=== PATIENT | female | born 1980 | race American Indian/Alaskan Native ===

== ENCOUNTER 2020-11-23 21:34 | Emergency (ER) | payer MEDICAID ==
[2020-11-23 22:12] VITALS: BP 116/63
--- NOTE | 2020-11-23 22:58 | Emergency Department Report ---
ED Head Trauma HPI - General Chief complaint: Head Injury Stated complaint: HEAD PAIN/HEADACHE Time Seen by Provider: 11/23/20 22:23 Source: patient Mode of arrival: Ambulatory Limitations: No Limitations - History of Present Illness Initial comments: Patient is a 40-year-old female presents emergency room complaints of a head injury that occurred 5 days ago. Patient states that she had some clothes hanging and was ducking underneath and hit her head against the door frame. She states since then she has had a left frontal and left temporal headache. She denies any loss of consciousness. She states one morning she woke up and her vision felt slightly blurry but since then she has had no vision changes. She denies any nausea, vomiting, photophobia, numbness, weakness, lightheadedness, dizziness, bowel or bladder incontinence, neck pain. She is not on any blood thinners. She has a past medical history of hypothyroidism and ulcerative col itis. She denies any allergies to medications. She states her last menstrual cycle was 11/19/2020. Patient's [place] CT head rule is 0, CT head imaging is not recommended based on the medical literature, patient is still insisting to have a CT of her head. - Related Data Previous Rx's Medication Instructions Recorded Last Taken Type Butalb/Acetaminophen/Caffeine 1 cap PO Q8HR PRN #10 cap 11/23/20 Unknown Rx [Fioricet 50-300-40 mg CAP] Ondansetron [Zofran Odt] 4 mg PO Q8HR PRN #10 tab.rapdis 11/23/20 Unknown Rx Allergies/Adverse reactions: Allergies Allergy/AdvReac Type Severity Reaction Status Date / Time No Known Allergies Allergy Unverified 11/23/20 23:36 ED Review of Systems ROS: Stated complaint: HEAD PAIN/HEADACHE Other details as noted in HPI Comment: All other systems reviewed and negative ED Past Medical Hx - Past Medical History Previous Medical History?: Yes Additional medical history: Thyroid Disease. Ulcerative Colitis - Surgical History Past Surgical History?: Yes Additional Surgical History: Right knee. Right axilla. - Social History Smoking Status: Never Smoker Substance Use Type: None - Medications Home Medications: Home Medications Medication Instructions Recorded Confirmed Last Taken Type Butalb/Acetaminophen/Caffeine 1 cap PO Q8HR PRN #10 cap 11/23/20 Unknown Rx [Fioricet 50-300-40 mg CAP] Ondansetron [Zofran Odt] 4 mg PO Q8HR PRN #10 tab.rapdis 11/23/20 Unknown Rx ED Physical Exam - General Limitations: No Limitations General appearance: alert, in no apparent distress - Head Head exam: Present: atraumatic, normocephalic, other (no bony skull ttp, no hemtomas) - Eye Eye exam: Present: normal appearance, PERRL, EOMI. Absent: periorbital swelling, periorbital tenderness Pupils: Present: normal accommodation, other (no racoon eyes) - ENT ENT exam: Present: mucous membranes moist, other (no mello signs) - Neck Neck exam: Present: normal inspection, full ROM. Absent: tenderness, meningismus - Respiratory Respiratory exam: Present: normal lung sounds bilaterally. Absent: respiratory distress, wheezes, rales, rhonchi, stridor, chest wall tenderness, accessory muscle use, decreased breath sounds, prolonged expiratory - Cardiovascular Cardiovascular Exam: Present: regular rate, normal rhythm, normal heart sounds. Absent: systolic murmur, diastolic murmur, rubs, gallop - Neurological Exam Neurological exam: Present: alert, oriented X3, CN II-XII intact, normal gait, other (normal finger to nose, normal heel to gupta, no pronator drift, 5/5 muscle strength in the BUE/BLE, sensation intact throughout, normal gait, normal tandem walking, normal rapid alterating movements, no focal neuro deficit). Absent: motor sensory deficit - Psychiatric Psychiatric exam: Present: normal affect, normal mood - Skin Skin exam: Present: warm, dry, intact ED Course Vital Signs 11/23/20 22:04 Temperature 98.0 F Pulse Rate 83 Respiratory 16 Rate Blood Pressure 116/63 O2 Sat by Pulse 98 Oximetry - Radiology Data Radiology results: report reviewed Ordering Physician: JHONATHAN VALADEZ Date of Service: 11/23/20 Procedure(s): CT head/brain wo con Accession Number(s): [id number] cc: JHONATHAN VALADEZ CT HEAD WITHOUT CONTRAST INDICATION / CLINICAL INFORMATION: headache after hitting head. TECHNIQUE: All CT scans at this location are performed using CT dose reduction for ALARA by means of automated exposure control. COMPARISON: None available. FINDINGS: HEMORRHAGE: None. EXTRA-AXIAL SPACES: Normal in size and morphology for the patient's age. VENTRICULAR SYSTEM: Normal in size and morphology for the patient's age. CEREBRAL PARENCHYMA: No significant abnormality. No acute territorial infarct. MIDLINE SHIFT / HERNIATION: None. CEREBELLUM / BRAINSTEM: No significant abnormality. ORBITS: Normal as visualized. SOFT TISSUES: No significant abnormality. SKULL: No significant abnormality. PARANASAL SINUSES / MASTOID AIR CELLS: Normal as visualized. ADDITIONAL FINDINGS: None. IMPRESSION: 1. No acute intracranial abnormality. Signer Name: Pk Santos MD Signed: 11/23/2020 11:22 PM Workstation Name: [id number] Transcribed By: MARYELLEN Dictated By: Pk Santos MD Electronically Authenticated By: Pk Santos MD Signed Date/Time: 11/23/202321 DD/ 19 TD/TT: - Medical Decision Making Patient is a 40-year-old female presents emergency room complaints of a head injury that occurred 5 days ago. Patient states that she had some clothes hanging and was ducking underneath and hit her head against the door frame. She states since then she has had a left frontal and left temporal headache. She denies any loss of consciousness. She states one morning she woke up and her vision felt slightly blurry but since then she has had no vision changes. She denies any nausea, vomiting, photophobia, numbness, weakness, lightheadedness, dizziness, bowel or bladder incontinence, neck pain. She is not on any blood thinners. She has a past medical history of hypothyroidism and ulcerative colitis. She denies any allergies to medications. She states her last menstrual cycle was 11/19/2020. Patient's [place] CT head rule is 0, CT head imaging is not recommended based on the medical literature, patient is still insisting to have a CT of her head. Vitals are normal. She has no focal neuro deficits on exam, no mello signs, no raccoon eyes. CT head 1. No acute intracranial abnormality. Discussed all results with patient answered questions. Patient given prescription for Fioricet and Zofran. Advised patient Please take medication as prescribed as needed. Increase your water intake. Follow-up with your primary care doctor. Follow-up with a neurologist. Return to emergency room for any new or worsening symptoms. - Differential Diagnosis Concussion, minor head injury, contusion, ICH, SDH, epidural hematoma - NEXUS Criteria Focal neurological deficit present: No Midline spinal tenderness present: No Altered level of consciousness: No Intoxication present: No Distracting injury present: No NEXUS results: C-Spine can be cleared clinically by these results. Imaging is not required. Critical care attestation.: If time is entered above; I have spent that time in minutes in the direct care of this critically ill patient, excluding procedure time. ED Disposition Clinical Impression: Minor head injury Qualifiers: Encounter type: initial encounter Qualified Code(s): S09.90XA - Unspecified injury of head, initial encounter Disposition: TO HOME OR SELFCARE Is pt being admited?: No Does the pt Need Aspirin: No Condition: Stable Instructions: Head Injury, Adult Additional Instructions: Please take medication as prescribed as needed. Increase your water intake. Follow-up with your primary care doctor. Follow-up with a neurologist. Return to emergency room for any new or worsening symptoms. The CT scan of your head today is normal Prescriptions: Butalb/Acetaminophen/Caffeine [Fioricet 50-300-40 mg CAP] 1 cap PO Q8HR PRN #10 cap PRN Reason: headache Ondansetron [Zofran Odt] 4 mg PO Q8HR PRN #10 tab.rapdis PRN Reason: Nausea And Vomiting Referrals: PRIMARY CAREMD [Primary Care Provider] - 2-3 Days DULCE GOLDBERG MD [Referring] - 2-3 Days Time of Disposition: 23:28 Print Language: MACEDONIAN
--- NOTE | 2020-11-23 23:27 | Cat Scan Report ---
CT HEAD WITHOUT CONTRAST INDICATION / CLINICAL INFORMATION: headache after hitting head. TECHNIQUE: All CT scans at this location are performed using CT dose reduction for ALARA by means of automated exposure control. COMPARISON: None available. FINDINGS: HEMORRHAGE: None. EXTRA-AXIAL SPACES: Normal in size and morphology for the patient's age. VENTRICULAR SYSTEM: Normal in size and morphology for the patient's age. CEREBRAL PARENCHYMA: No significant abnormality. No acute territorial infarct. MIDLINE SHIFT / HERNIATION: None. CEREBELLUM / BRAINSTEM: No significant abnormality. ORBITS: Normal as visualized. SOFT TISSUES: No significant abnormality. SKULL: No significant abnormality. PARANASAL SINUSES / MASTOID AIR CELLS: Normal as visualized. ADDITIONAL FINDINGS: None. IMPRESSION: 1. No acute intracranial abnormality. Signer Name: Pk Santos MD Signed: 11/23/2020 11:22 PM Workstation Name: [id number]
== END 2020-11-23 23:35 | disposition home or self-care (01) ==
LOC: ED 21:34
DX: S09.90XA Unspecified injury of head, initial encounter (principal); Z98.890 Other specified postprocedural states; Z79.899 Other long term (current) drug therapy; W22.8XXA Striking against or struck by other objects, initial encounter; Y93.89 Activity, other specified; Y92.89 Other specified places as the place of occurrence of the external cause; Y99.8 Other external cause status
CPT/HCPCS: 70450